=== PATIENT | male | born 1945 | race Caucasian/White ===

== ENCOUNTER 2017-04-02 17:20 | Emergency (ER) | payer MEDICARE, MEDICAID ==
[~2017-04-02] VITALS: Ht 185.4 cm; Wt 77.1 kg
[~2017-04-02 17:20] MED LIST: BACLOFEN20 MG PO; CARAFATE 11 GM/10 ML PO; LOTENSIN 20MG T20 MG PO; METHADONE 10MG10 MG PO; PREDNISONE 10MG10 MG PO; PROTONIX 40MG T40 MG PO; ROXICODONE30 MG PO
--- OUTSIDE RECORDS SUMMARY | 2017-04-02 17:41 | External Medical Summary Rpt | CCD ---
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
--- OUTSIDE RECORDS SUMMARY | 2017-04-02 17:41 | External Medical Summary Rpt | CCD ---
Author Author , SCOOBY ALMODOVAR Address Unknown Phone [employer] Purpose Continuity of Care Document - 01-18-2017 [...]
--- NOTE | 2017-04-02 17:42 | Emergency Room Report ---
History of Present Illness Time Seen by [id number] Presenting Problem in Triage Pt arrived:Wheelchair Presenting Problem:PT ADVISED ABOUT A HOUR AND GALF AGO THE LEFT SIDE OF HIS FACE STARTED GOING NUMB AND HAVING SLURRED SPEECH. 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 N Clinical Suspician of Infection? N Mental Status: 1 - Regular (Normal Baseline) Sepsis Risk:Low Sepsis Risk Have you (or family members/close friends) recently traveled outside the [place]? N If Yes, where/when: Have you had exposure to infectious disease within the past month? N TB? Other? Specify: Source patient, RN notes reviewed, RN/MD Exam Limitations no limitations Comment This is an 72-year-old male patient brought to the emergency room by POV with left-sided weakness and numbness, onset 1 hour prior to arrival, approximately around 1600. Patient stated that he woke up at 1 PM today, and while working around the house he started developing above-mentioned complaints. Patient denies any blurred vision but he does have some slurred speech as well. He had a TIA approximately one year ago and he was sent to [facility]. Patient appears to be in pain management, currently on oxycodone and methadone. ALLERGIES Coded Allergies: cephalexin (From KEFLEX) (07/03/16) Home Medications Active Scripts Pantoprazole Sodium (Protonix 40MG TAB) 40 MG PO BID #60 TAB Ref 2 Prov: 01/25/16 Sucralfate (Carafate Oral Susp (Disp 30 day supply)) 1 GM PO QID #1200 ML Ref 2 Prov: 01/25/16 Reported Medications OXYCODONE HCL (Roxicodone) 30 MG PO QID Methadone Hcl (Methadone) 10 MG PO Q8H History Medical History General CAD? No Angina: No MO: No Hypertension? Yes Hyperlipidemia? No CHF? No DVT? No PE? No COPD? No Asthma? No Anemia? No GERD? Yes Gastric ulcers? No GI Bleed? No Hernia? No Thyroid Problems? No Hypothyroidism? No CVA? No Seizures? No Diabetes? No Renal Insuffiency? No End Stage Renal Disease? No UTI? No Stones? No GB Disease: Yes Nephritic Syndrome? No Asplenia? No Hepatitis? No Sickle Cell Disease? No Arthritis? No Migraines? No Cataracts? No Glaucoma? No MRSA? No HIV? No TB? No Anxiety? Yes Depression? Yes Cancer? No Immunization Hx DT/Tetanus 5-10 Years Ago Flu Refused Pneumonia Refuses Surgical Hx Previous Surgery?Y LEFT FOOT REPAIR Family History Family Hx Diabetes No CAD Yes Hypertension No Hyperlipidemia No Cancer No TB No Social History Smoking Hx Smoker: Current Every Day Smoker Tobacco: Yes Type Cigarettes Packs/day < 1 Pack Alcohol Alcohol: No Review of Systems All Other Systems Reviewed and Negative Psychiatric/Neurological numbness (left-sided), paresthesia (left-sided), weakness (left-sided) Physical Exam Vital Signs Vital Signs Date Time Temp Pulse Resp B/P Pulse O2 O2 Flow FiO2 Ox Delivery Rate 04/02 1817 45 16 164/93 98 04/02 181 98.1 50 16 162/96 98 04/02 1734 98.1 50 16 175/82 98 General Appearance normal appearance, WD/WN, mild distress Eye Exam - bilateral eye normal exam, bilateral eye PERRL, bilateral eye EOMI, bilateral eye other (normal fundi) Neck normal inspection, non-tender, supple, full range of motion Respiratory Status Yes: trachea midline, chest symmetrical, non tender chest. No: respiratory distress. Lung Sounds bilateral: normal breath sounds, lungs clear. Cardiovascular normal exam, regular rate/rhythm, no peripheral edema, no gallop, no JVD, no murmur, no rub, normal peripheral pulses Gastrointestinal normal bowel sounds, normal exam, non tender, soft, no organomegaly Extremities non-tender, normal range of motion, normal inspection Neurologic alert, oriented x 3, LEFT facial weakness and numbness, LEFT upper extremity weakness and numbness LEFT lower extremity weakness or numbness Glascow Coma Scale Glascow Coma Scale Response Value EYE response: 4 Spontaneously 4 MOTOR response: 6 OBEYS 6 VERBAL response: 5 Oriented & Converses 5 Total 15 Mental status depressed affect Skin intact, normal color, warm/dry Stroke Score/Tx Stroke Evaluation Initial symptoms indicative of possible stroke? Yes NIH STROKE SCORE NIH STROKE SCORE Response Value 1a.Level of Consciousness ALERT 0 1b.LOC Questions ANSWERS BOTH CORRECTLY 0 1c.LOC Commands OBEYS BOTH CORRECTLY 0 2 .Best Gaze NORMAL 0 3 .Visual NO VISUAL LOSS 0 4 .Facial Palsy MINOR 1 5a.Motor Arm Left DRIFT 1 5b.Motor Arm Right NO DRIFT 0 6a.Motor Leg Left DRIFT 1 6b.Motor Leg Right NO DRIFT 0 7 .Limb Ataxia ABSENT 0 8 .Sensory PARTIAL LOSS 1 9 .Best Language NO APHASIA 0 10.Dysarthria NORMAL ARTICULATION 0 ED.NIH11 NO NEGLECT 0 Total 4 Treatment Consideration t-PA ordered? No Medical Decision Making LABS/Meds/Orders Pt receiving controlled substance in ED? No Comment 1749-call initiated with [facility], regarding patient need to be transferred due to his recent CVA today. 1756-case d/w Dr Sacnhez, neurologist implementation analyst with stroke team, advised of patient's GCS an NIH, agreeable with transfer. Results/Orders Laboratory Tests 04/02/17 1753: POC Glucose 121 H 04/02/17 1747: Opiates Screen Cancelled, Urine Methadone Screen Cancelled, Barbiturates Cancelled, Phencyclidine Screen Cancelled, Amphetamines Screen Cancelled, Benzodiazepines Screen Cancelled, Cocaine Screen Cancelled, Marijuana (THC) Screen Cancelled 04/02/17 1725: Sodium Cancelled, Potassium Cancelled, Chloride Cancelled, Carbon Dioxide Cancelled, BUN Cancelled, Creatinine Cancelled, Estimated Creat Clear Cancelled, Estimated GFR (MDRD) Cancelled, Glucose Cancelled, Calcium Cancelled, Total Bilirubin Cancelled, AST Cancelled, ALT Cancelled, Alkaline Phosphatase Cancelled, Creatine Kinase Cancelled, CK-MB (CK-2) Rel Index Cancelled, CK and CKMB Interp Cancelled, Troponin I Cancelled, B-Natriuretic Peptide Cancelled, Total Protein Cancelled, Albumin Cancelled, Globulin Cancelled, Albumin/Globulin Ratio Cancelled, PT Cancelled, INR Cancelled, APTT Cancelled, D-Dimer Cancelled, WBC Cancelled, RBC Cancelled, Hgb Cancelled, Hct Cancelled, MCV Cancelled, RDW Cancelled, Plt Count Cancelled, Gran % Cancelled, Gran # Cancelled, Lymphocytes % Cancelled, Eosinophils % Cancelled, Basophils % Cancelled, Lymphocytes # Cancelled, Eosinophils # Cancelled, Basophils # Cancelled, PUBS MCHC Cancelled, MCH Cancelled Current Medication Orders Sig/Darius Start time Last Medication Dose Route Stop Time Status Admin Sodium Chloride 1,000 ML .Q1H1M 04/02 1800 DCD 04/02 IV 04/02 1900 1759 Sodium Chloride 10 ML PRN PRN 04/02 1800 DCD IV 04/03 175 Sodium Chloride 10 ML PRN PRN 04/02 1730 DCD 04/02 IV 04/03 1722 1759 Orders Procedure Date/time Status FINGERSTICK BLOOD SUGAR 04/02 175 Complete ELECTROCARDIOGRAM REQUEST 04/02 172 Active IV SALINE LOCK 04/02 1725 Active ADOPTION SERVICES MANAGER 04/02 172 Active 12 LEAD EKG-RAFFI (INITIAL) 04/02 UNK Active 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 of ischemic chgs, no ectopy, normal QRS, normal AR, no EKG for comparison, non-spec. ST/Twave chgs, ST elevation, ST depression, LBBB, RBBB, ectopy, abnormal Q waves XRAY/CT/US XRAY/CT/US CT head CT interpretation by discussed w/radiologist CT Results normal/NAD (no acute ICH), no fracture seen Departure Departure Time of Disposition 1753 Disposition DC/[facility]FER from ER [facility] Clinical Impression Primary Impression: Sinus bradycardia Secondary Impressions: CVA (cerebral vascular accident) Qualifiers: CVA mechanism: unspecified Qualified Code: I63.9 - Cerebral infarction, unspecified Condition STABLE ED Critical Care Critical Care Yes Time spent 30-74 min Vital system(s) involved: Central Nervous System I was present at bedside for Coordinating pt's care, During my initial exam, Reviewing lab results, Reviewing old records, Discussing pt condition, For re- examinations, Examining radiographs If Critical Care minutes are documented, the time involved in the performance of seperately reportable procedures was not counted toward critical care time documented. I directly delivered medical care to this critically ill and/or injured patient. Timely evaluation and treatment was necessary to address the significant organ system(s) dysfunction present in this patient. at 1830
--- NOTE | 2017-04-02 17:42 | Emergency Room Report ---
History of Present Illness Time Seen by [id number] Presenting Problem in Triage Pt arrived:Wheelchair Presenting Problem:PT ADVISED ABOUT A HOUR AND GALF AGO THE LEFT SIDE OF HIS FACE STARTED GOING NUMB AND HAVING SLURRED SPEECH. 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 N Clinical Suspician of Infection? N Mental Status: 1 - Regular (Normal Baseline) Sepsis Risk:Low Sepsis Risk Have you (or family members/close friends) recently traveled outside the [place]? N If Yes, where/when: Have you had exposure to infectious disease within the past month? N TB? Other? Specify: Source patient, RN notes reviewed, RN/MD Exam Limitations no limitations Comment This is an 72-year-old male patient brought to the emergency room by POV with left-sided weakness and numbness, onset 1 hour prior to arrival, approximately around 1600. Patient stated that he woke up at 1 PM today, and while working around the house he started developing above-mentioned complaints. Patient denies any blurred vision but he does have some slurred speech as well. He had a TIA approximately one year ago and he was sent to [facility]. Patient appears to be in pain management, currently on oxycodone and methadone. ALLERGIES Coded Allergies: cephalexin (From KEFLEX) (07/03/16) Home Medications Active Scripts Pantoprazole Sodium (Protonix 40MG TAB) 40 MG PO BID #60 TAB Ref 2 Prov: 01/25/16 Sucralfate (Carafate Oral Susp (Disp 30 day supply)) 1 GM PO QID #1200 ML Ref 2 Prov: 01/25/16 Reported Medications OXYCODONE HCL (Roxicodone) 30 MG PO QID Methadone Hcl (Methadone) 10 MG PO Q8H History Medical History General CAD? No Angina: No CT: No Hypertension? Yes Hyperlipidemia? No CHF? No DVT? No PE? No COPD? No Asthma? No Anemia? No GERD? Yes Gastric ulcers? No GI Bleed? No Hernia? No Thyroid Problems? No Hypothyroidism? No CVA? No Seizures? No Diabetes? No Renal Insuffiency? No End Stage Renal Disease? No UTI? No Stones? No GB Disease: Yes Nephritic Syndrome? No Asplenia? No Hepatitis? No Sickle Cell Disease? No Arthritis? No Migraines? No Cataracts? No Glaucoma? No MRSA? No HIV? No TB? No Anxiety? Yes Depression? Yes Cancer? No Immunization Hx DT/Tetanus 5-10 Years Ago Flu Refused Pneumonia Refuses Surgical Hx Previous Surgery?Y LEFT FOOT REPAIR Family History Family Hx Diabetes No CAD Yes Hypertension No Hyperlipidemia No Cancer No TB No Social History Smoking Hx Smoker: Current Every Day Smoker Tobacco: Yes Type Cigarettes Packs/day < 1 Pack Alcohol Alcohol: No Review of Systems All Other Systems Reviewed and Negative Psychiatric/Neurological numbness (left-sided), paresthesia (left-sided), weakness (left-sided) Physical Exam Vital Signs Vital Signs Date Time Temp Pulse Resp B/P Pulse O2 O2 Flow FiO2 Ox Delivery Rate 04/02 1817 45 16 164/93 98 04/02 181 98.1 50 16 162/96 98 04/02 1734 98.1 50 16 175/82 98 General Appearance normal appearance, WD/WN, mild distress Eye Exam - bilateral eye normal exam, bilateral eye PERRL, bilateral eye EOMI, bilateral eye other (normal fundi) Neck normal inspection, non-tender, supple, full range of motion Respiratory Status Yes: trachea midline, chest symmetrical, non tender chest. No: respiratory distress. Lung Sounds bilateral: normal breath sounds, lungs clear. Cardiovascular normal exam, regular rate/rhythm, no peripheral edema, no gallop, no JVD, no murmur, no rub, normal peripheral pulses Gastrointestinal normal bowel sounds, normal exam, non tender, soft, no organomegaly Extremities non-tender, normal range of motion, normal inspection Neurologic alert, oriented x 3, LEFT facial weakness and numbness, LEFT upper extremity weakness and numbness LEFT lower extremity weakness or numbness Glascow Coma Scale Glascow Coma Scale Response Value EYE response: 4 Spontaneously 4 MOTOR response: 6 OBEYS 6 VERBAL response: 5 Oriented & Converses 5 Total 15 Mental status depressed affect Skin intact, normal color, warm/dry Stroke Score/Tx Stroke Evaluation Initial symptoms indicative of possible stroke? Yes NIH STROKE SCORE NIH STROKE SCORE Response Value 1a.Level of Consciousness ALERT 0 1b.LOC Questions ANSWERS BOTH CORRECTLY 0 1c.LOC Commands OBEYS BOTH CORRECTLY 0 2 .Best Gaze NORMAL 0 3 .Visual NO VISUAL LOSS 0 4 .Facial Palsy MINOR 1 5a.Motor Arm Left DRIFT 1 5b.Motor Arm Right NO DRIFT 0 6a.Motor Leg Left DRIFT 1 6b.Motor Leg Right NO DRIFT 0 7 .Limb Ataxia ABSENT 0 8 .Sensory PARTIAL LOSS 1 9 .Best Language NO APHASIA 0 10.Dysarthria NORMAL ARTICULATION 0 ED.NIH11 NO NEGLECT 0 Total 4 Treatment Consideration t-PA ordered? No Medical Decision Making LABS/Meds/Orders Pt receiving controlled substance in ED? No Comment 1749-call initiated with [facility], regarding patient need to be transferred due to his recent CVA today. 1756-case d/w Dr Sanchez, neurologist home connect lpn with stroke team, advised of patient's GCS an NIH, agreeable with transfer. Results/Orders Laboratory Tests 04/02/17 1753: POC Glucose 121 H 04/02/17 1747: Opiates Screen Cancelled, Urine Methadone Screen Cancelled, Barbiturates Cancelled, Phencyclidine Screen Cancelled, Amphetamines Screen Cancelled, Benzodiazepines Screen Cancelled, Cocaine Screen Cancelled, Marijuana (THC) Screen Cancelled 04/02/17 1725: Sodium Cancelled, Potassium Cancelled, Chloride Cancelled, Carbon Dioxide Cancelled, BUN Cancelled, Creatinine Cancelled, Estimated Creat Clear Cancelled, Estimated GFR (MDRD) Cancelled, Glucose Cancelled, Calcium Cancelled, Total Bilirubin Cancelled, AST Cancelled, ALT Cancelled, Alkaline Phosphatase Cancelled, Creatine Kinase Cancelled, CK-MB (CK-2) Rel Index Cancelled, CK and CKMB Interp Cancelled, Troponin I Cancelled, B-Natriuretic Peptide Cancelled, Total Protein Cancelled, Albumin Cancelled, Globulin Cancelled, Albumin/Globulin Ratio Cancelled, PT Cancelled, INR Cancelled, APTT Cancelled, D-Dimer Cancelled, WBC Cancelled, RBC Cancelled, Hgb Cancelled, Hct Cancelled, MCV Cancelled, RDW Cancelled, Plt Count Cancelled, Gran % Cancelled, Gran # Cancelled, Lymphocytes % Cancelled, Eosinophils % Cancelled, Basophils % Cancelled, Lymphocytes # Cancelled, Eosinophils # Cancelled, Basophils # Cancelled, PUBS MCHC Cancelled, MCH Cancelled Current Medication Orders Sig/Darius Start time Last Medication Dose Route Stop Time Status Admin Sodium Chloride 1,000 ML .Q1H1M 04/02 1800 DCD 04/02 IV 04/02 1900 1759 Sodium Chloride 10 ML PRN PRN 04/02 1800 DCD IV 04/03 175 Sodium Chloride 10 ML PRN PRN 04/02 1730 DCD 04/02 IV 04/03 1722 1759 Orders Procedure Date/time Status FINGERSTICK BLOOD SUGAR 04/02 175 Complete ELECTROCARDIOGRAM REQUEST 04/02 172 Active IV SALINE LOCK 04/02 1725 Active MANAGER HEART 04/02 172 Active 12 LEAD EKG-RAFIF (INITIAL) 04/02 UNK Active 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 of ischemic chgs, no ectopy, normal QRS, normal OR, no EKG for comparison, non-spec. ST/Twave chgs, ST elevation, ST depression, LBBB, RBBB, ectopy, abnormal Q waves XRAY/CT/US XRAY/CT/US CT head CT interpretation by discussed w/radiologist CT Results normal/NAD (no acute ICH), no fracture seen Departure Departure Time of Disposition 1753 Disposition DC/[facility]FER from ER to [facility] Clinical Impression Primary Impression: Sinus bradycardia Secondary Impressions: CVA (cerebral vascular accident) Qualifiers: CVA mechanism: unspecified Qualified Code: I63.9 - Cerebral infarction, unspecified Condition STABLE ED Critical Care Critical Care Yes Time spent 30-74 min Vital system(s) involved: Central Nervous System I was present at bedside for Coordinating pt's care, During my initial exam, Reviewing lab results, Reviewing old records, Discussing pt condition, For re- examinations, Examining radiographs If Critical Care minutes are documented, the time involved in the performance of seperately reportable procedures was not counted toward critical care time documented. I directly delivered medical care to this critically ill and/or injured patient. Timely evaluation and treatment was necessary to address the significant organ system(s) dysfunction present in this patient. at 1830
--- OUTSIDE RECORDS SUMMARY | 2017-04-02 17:42 | External Medical Summary Rpt | CCD ---
Demographics Preferred Language Haitian Marital Status Unknown Spiritism Affiliation Unknown Race Unknown Ethnic Group Unknown Author Author , SCOOBY ALMODOVAR Address Unknown Phone Immunization No patient found.
--- OUTSIDE RECORDS SUMMARY | 2017-04-02 17:42 | External Medical Summary Rpt | CCD ---
Demographics Preferred Language Citizen Of [place] Marital Status Unknown Scientologist Affiliation Unknown Race Unknown Ethnic Group Unknown Author Author , SCOOBY ALMODOVAR Address Unknown Phone Immunization No patient found.
--- OUTSIDE RECORDS SUMMARY | 2017-04-02 17:42 | External Medical Summary Rpt | CCD ---
Author Author [employer] Address Unknown Phone Unavailable Purpose Continuity of Care Document - through 2016
[2017-04-02 18:17] VITALS: BP 164/93
--- NOTE | 2017-04-02 18:44 | RADIOLOGY REPORT PS360 ---
CHEST-PORTABLE HISTORY: Chest pain pain ORDERING PHYSICIAN: Terence Jovel MD PATIENT AGE: 72 years COMPARISON: 01/23/2016 FINDINGS: The cardiomediastinal silhouette and pulmonary vascularity are within normal limits. There is a vague 15 mm opacity overlying the left upper lobe at the third rib anteriorly. A patchy area of infiltrate, contusion, or developing nodule is a consideration. Follow-up recommended.. There are multiple old right-sided rib fractures.. IMPRESSION: 1. No acute finding. 2. Vague opacity left upper lobe. Upright PA and lateral chest suggested when patient can tolerate as a developing nodule cannot be excluded
--- NOTE | 2017-04-02 18:46 | RADIOLOGY REPORT PS360 ---
CT HEAD W/O CONTRAST HISTORY: Speech disturbance, weakness, left extremity weakness, slurred speech, right arm numbness, left leg weakness STROKE PROTOCOL ORDERING PHYSICIAN: Terence Jovel MD PATIENT AGE: 72 years COMPARISON: 03/20/2016 TECHNIQUE: Axial images obtained without contrast. Brain and bone windows reviewed. FINDINGS: No midline shift, mass effect, intracranial hemorrhage, hydrocephalus, or extra-axial fluid collection is evident. There is generalized atrophy with hypoattenuation in the periventricular region consistent with ischemic gliotic change from microvascular disease. 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 The calvarium has an unremarkable appearance. No mastoid effusion. Mucosal thickening of the ethmoid sinuses . IMPRESSION: 1. No acute intracranial findings. 2. Atrophy with chronic ischemic changes. 3. Ethmoid sinus disease.
== END 2017-04-02 18:45 | disposition short-term general hospital (02) ==
LOC: ER 17:20
DX: I63.9 Cerebral infarction, unspecified (principal); R00.1 Bradycardia, unspecified; I10 Essential (primary) hypertension; F17.210 Nicotine dependence, cigarettes, uncomplicated; R29.704 NIHSS score 4; R47.81 Slurred speech; R29.810 Facial weakness; Z86.73 Personal history of transient ischemic attack (TIA), and cerebral infarction without residual deficits; Z79.891 Long term (current) use of opiate analgesic; Z79.899 Other long term (current) drug therapy; Z88.3 Allergy status to other anti-infective agents